=== PATIENT | female | born 1960 | race Caucasian/White ===

== ENCOUNTER 2017-03-05 09:54 | Emergency (ER) | payer BC ==
[2017-03-05 11:21] VITALS: BP 122/71
--- NOTE | 2017-03-05 12:05 | UC ---
Throat Pain/Nasal Flaco HPI - HPI Summary HPI Summary: Pt presents with c/o sinus congestion and tenderness X 4 weeks. - History of Current Complaint Chief Complaint: UCGeneralIllness Stated Complaint: SINUS Time Seen by Provider: 03/05/17 12:00 Hx Obtained From: Patient Hx Last Menstrual Period: 05/2012 ?: No Onset/Duration: Gradual Onset, Lasting Weeks - 4 Severity: Moderate Associated Signs & Symptoms: Positive: Sinus Discomfort, Other - fatigue Related History: Seasonal Allergies - Epiglottits Risk Factors Epiglottis Risk Factors: Negative - Allergies/Home Medications Allergies/Adverse Reactions: Allergies Allergy/AdvReac Type Severity Reaction Status Date / Time eggplant Allergy Difficulty Uncoded 03/05/17 11:16 Breathing hayfever Allergy Eyes Uncoded 03/05/17 11:16 Itchy/Swollen/Red/Watery/Post Nasal Drip PMH/Surg Hx/FS Hx/Imm Hx - Additional Past Medical History Additional PMH: 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 RIGHT GANGLION CYST EXCISION 8. 2009 CTR RIGHT WRIST, [place] - Family History Known Family History: Positive: Cardiac Disease - Social History Occupation: Employed Full-time Lives: With Family Alcohol Use: None Substance Use Type: None Smoking Status (MU): Never Smoked Tobacco Type: Cigarettes Amount Used/How Often: 1 PPD Length of Time of Smoking/Using Tobacco: 10 YEARS Have You Smoked in the Last Year: No When Did the Patient Quit Smoking/Using Tobacco: 20 YEARS - Immunization History Most Recent Tetanus Shot: FEB 2010 Review of Systems Constitutional: Fatigue Skin: Negative Eyes: Negative ENT: Sinus Congestion, Sinus Pain/Tenderness - maxillary and frontal Respiratory: Negative Cardiovascular: Negative Gastrointestinal: Negative Genitourinary: Negative Motor: Negative Neurovascular: Negative Musculoskeletal: Negative Neurological: Headache Psychological: Negative Is Patient Immunocompromised?: No All Other Systems Reviewed And Are Negative: Yes Physical Exam Triage Information Reviewed: Yes Appearance: Ill-Appearing Vital Signs: Initial Vital Signs Temp 98.2 F 03/05/17 11:18 Pulse 63 03/05/17 11:18 Resp 16 03/05/17 11:18 BP 122/71 03/05/17 11:18 Pulse Ox 100 03/05/17 11:18 Vital Signs Reviewed: Yes Eye Exam: Normal ENT: Positive: Nasal congestion, Other: - maxillary and frontal tenderness, Neck exam: Normal Respiratory Exam: Normal Cardiovascular Exam: Normal Musculoskeletal Exam: Normal Neurological Exam: Normal Psychological Exam: Normal Skin Exam: Normal Throat Pain/Nasal Course/Dx - Differential Dx/Diagnosis Differential Diagnosis/HQI/PQRI: Influenza, Sinusitis, URI Provider Diagnoses: sinusitis Discharge - Discharge Plan Condition: Stable Disposition: HOME Prescriptions: Amoxicillin PO (*) [Amoxicillin 875 MG (*)] 875 mg PO Q12H #20 tab Patient Education Materials: Sinusitis (ED) Referrals: Felicity Santiago MD [Primary Care Provider] - If Needed Additional Instructions: Please follow up with your PCP as needed.
== END 2017-03-05 12:24 | disposition home or self-care (01) ==
LOC: UCCORT 09:54
DX: J32.9 Chronic sinusitis, unspecified (principal); J30.1 Allergic rhinitis due to pollen; Z91.018 Allergy to other foods
CPT/HCPCS: 99212; G0463

== ENCOUNTER 2018-04-15 13:23 | Emergency (ER) | payer BC ==
[2018-04-15 14:00] VITALS: BP 119/74
--- NOTE | 2018-04-15 14:48 | UC ---
Bite Injury/Animal HPI - HPI Summary HPI Summary: The patient is a 58-year-old female that presents here status post a cat bite to her left hand. This occurred at work. This occurred about 10 AM. Since the bite to her left second MCP joint has become markedly more red and swollen and painful. Her range of motion of her left index finger has become markedly decreased. Her tetanus isn't up-to-date. The cat is available to be observed. - History of Current Complaint Chief Complaint: UCBiteInjury Stated Complaint: CAT BITE Time Seen by Provider: 04/15/18 14:19 Hx Obtained From: Patient Hx Last Menstrual Period: 05/2012 Severity Currently: Moderate Severity Initially: Moderate Pain Intensity: 6 Pain Scale Used: 0-10 Numeric Onset/Duration: Sudden Onset, Lasting Hours Type of Bite: Pet Has Animal Been Immunized?: Unknown Character: Puncture Associated Signs And Symptoms: Positive: Erythema, Drainage, Limited ROM Hx of Bite: Provoked by: Animal Available for Observation: Yes Animal Control Notified: Yes Body - Head: 1 - red/swollen 2 - swollen/PW - Allergies/Home Medications Allergies/Adverse Reactions: Allergies Allergy/AdvReac Type Severity Reaction Status Date / Time eggplant Allergy Difficulty Uncoded 04/15/18 13:49 Breathing hayfever Allergy Eyes Uncoded 04/15/18 13:49 Itchy/Swollen/Red/Watery/Post Nasal Drip Home Medications: Home Medications Meloxicam 7.5 mg PO DAILY 04/15/18 [History Confirmed 04/15/18] PMH/Surg Hx/FS Hx/Imm Hx Previously Healthy: Yes - Surgical History Surgical History: Yes Surgery Procedure, Year, and Place: 2010 CERVICAL FUSION--C6, C7, [place]. RIGHT GANGLION CYST EXCISION . 2009 CTR RIGHT WRIST, [place] - Family History Known Family History: Positive: Cardiac Disease, Hypertension - Social History Alcohol Use: None Substance Use Type: None Smoking Status (MU): Former Smoker Type: Cigarettes Amount Used/How Often: 1 PPD Length of Time of Smoking/Using Tobacco: 10 YEARS Have You Smoked in the Last Year: No When Did the Patient Quit Smoking/Using Tobacco: 20 YEARS - Immunization History Most Recent Tetanus Shot: FEB 2010 Review of Systems All Other Systems Reviewed And Are Negative: Yes Constitutional: Positive: Negative Skin: Positive: Negative Eyes: Positive: Negative ENT: Positive: Negative Respiratory: Positive: Negative Cardiovascular: Positive: Negative Gastrointestinal: Positive: Negative Genitourinary: Positive: Negative Motor: Positive: Negative Neurovascular: Positive: Negative Musculoskeletal: Positive: Arthralgia, Decreased ROM, Edema Neurological: Positive: Negative Psychological: Positive: Negative Is Patient Immunocompromised?: No Physical Exam Triage Information Reviewed: Yes Appearance: Well-Appearing, No Pain Distress, Well-Nourished Vital Signs: Initial Vital Signs Temp 99.1 F 04/15/18 13:50 Pulse 75 04/15/18 13:50 Resp 17 04/15/18 13:50 BP 119/74 04/15/18 13:50 Pulse Ox 99 04/15/18 13:50 Vital Signs Reviewed: Yes Eyes: Positive: Conjunctiva Clear ENT: Positive: Hearing grossly normal. Negative: Nasal congestion, Nasal drainage, Trismus, Muffled voice, Hoarse voice Neck: Positive: Supple, Nontender, No Lymphadenopathy Respiratory: Positive: Lungs clear, Normal breath sounds, No respiratory distress, No accessory muscle use Cardiovascular: Positive: RRR, No Murmur Musculoskeletal: Positive: Other: - see image Neurological: Positive: Alert Skin Exam: Other - see image Bite Injury Course/Dx - Course Course Of Treatment: Dx- cat bite left hand. ? septic left 2nd MCP joint. I spoke with transfer center at [facility] - Differential Dx/Diagnosis Provider Diagnosis: Cat bite of hand, Septic joint of left hand Discharge - Sign-Out/Discharge Documenting (check all that apply): Patient Departure All imaging exams completed and their final reports reviewed: No Studies - Discharge Plan Condition: Stable Disposition: HOME-RECOMMEND TO ED Referrals: Felicity Santiago MD [Primary Care Provider] - Additional Instructions: I suggest you go to the ER at [facility] I spoke to the transfer center and they are expecting you you had a tetanus shot here (DTap) you had 875mg Augmentin here despite the fact the cat bite was only a few hours ago I am concerned that you may have a joint infection I suggest you seek a higher level of care - Billing Disposition and Condition Condition: STABLE Disposition: Home-Recommend to ED
[2018-04-15] MEDS ORDERED: Amoxicillin/Clavulanate TAB* 875 MG PO ONE (14:50)
[2018-04-15] MEDS ORDERED: Tetan/Diph/Pertus SYR(Tdap)* 0.5 ML SYR(BOOSTRIX) use SYR IM ONE (14:50)
== END 2018-04-15 15:10 | disposition home health service (06) ==
LOC: UCCORT 13:23
DX: S61.452A Open bite of left hand, initial encounter (principal); W55.01XA Bitten by cat, initial encounter; Y92.89 Other specified places as the place of occurrence of the external cause; Y99.0 Civilian activity done for income or pay; M00.9 Pyogenic arthritis, unspecified; Z87.891 Personal history of nicotine dependence
CPT/HCPCS: 90471; 90715; 99212; A9270-GY; G0463